=== PATIENT | male | born 1955 | race Caucasian/White ===

== ENCOUNTER 2018-06-02 01:45 | Inpatient (IN) | payer BC, OTHER ==
[2018-06-02] VITALS (20 sets, daily range): BP systolic 82–124; BP diastolic 44–85
[~2018-06-02] VITALS: Ht 180.3 cm; Wt 102.9 kg
[2018-06-02] MEDS ORDERED: PANTOPRAZOLE 80 MG in SODIUM CHLORIDE 0.9% 100 ML IV SCH (02:04)
[2018-06-02] MEDS ORDERED: OCTREOTIDE 500 MCG in SODIUM CHLORIDE 0.9% 249 ML IV PRN (02:21)
[2018-06-02] MEDS ORDERED: METOCLOPRAMIDE 5 MG/ML, 2ML ONE (02:28)
[2018-06-02] MEDS ORDERED: METOCLOPRAMIDE 5 MG/ML, 2ML IVPush ONE (02:30)
[2018-06-02] MEDS ORDERED: OCTREOTIDE 100MCG/ML, 1ML (0.1MG/ML) IV ONE (02:30)
[2018-06-02] MEDS ORDERED: SODIUM CHLORIDE FLUSH 10ML SYR IVF ONE (02:30)
[2018-06-02] MEDS ORDERED: PANTOPRAZOLE 40 MG IV IVPush ONE (02:30)
[2018-06-02] MEDS ORDERED: SODIUM CHLORIDE 0.9% 1,000ML IVBOLUS ONE (02:30)
[2018-06-02] MEDS ORDERED: PANTOPRAZOLE 40 MG IV ONE (02:37)
[2018-06-02 02:46] LABS: INTERNATIONAL NORMALIZED RATIO 1.72 (0.93-1.1); PROTHROMBIN TIME 17.7 Seconds (9.6-11.5)
[2018-06-02 02:47] LABS: ALANINE AMINOTRANSFERASE 36 U/L (12-78); ALBUMIN 1.8 g/dL (3.4-5.0); ANION GAP 13 mmol/L (5-15); CALCIUM 7.9 mg/dL (8.5-10.1); CHLORIDE 108 mmol/L (98-107); CREATININE 1.25 mg/dL (0.7-1.3)
[2018-06-02 02:49] LABS: ALKALINE PHOSPHATASE 127 U/L (45-117); BILIRUBIN,TOTAL 8.4 mg/dL (0.2-1.0); TOTAL PROTEIN 5.3 g/dL (6.4-8.2)
[2018-06-02 03:12] LABS: MEAN CORPUSCULAR HEMOGLOBIN 32.2 pg (27.5-34.5); MEAN CORPUSCULAR HGB CONC 34.5 g/dL (33.2-36.2); MEAN CORPUSCULAR VOLUME 93.3 fL (81-97); MEAN PLATELET VOLUME 11.5 fL (7.4-10.4); PLATELET COUNT 153 x10^3/uL (130-400); RED CELL DISTRIBUTION WIDTH 22.5 % (9.4-14.8)
[2018-06-02] MEDS ORDERED: CEFTRIAXONE 1,000 MG in SODIUM CHLORIDE 0.9% 50 ML IV ONE (04:00)
[2018-06-02] MEDS ORDERED: LIDOCAINE 1%-EPI 1:100K, 30ML ONE (04:22)
[2018-06-02] MEDS: OCTREOTIDE 500 MCG in DEXTROSE 5% 249 ML IV SCH ×2 (04:56→13:34)
[2018-06-02] MEDS: PANTOPRAZOLE 80 MG in SODIUM CHLORIDE 0.9% 100 ML IV SCH ×3 (04:56→21:25)
[2018-06-02] MEDS ORDERED: ONDANSETRON 2MG/ML, 2ML IV PRN (05:00)
[2018-06-02 05:28] LABS: BASOPHILS # (AUTO) 0.04 x10^3/uL (0-0.1); BASOPHILS % (AUTO) 0 % (0-1); EOSINOPHILS # (AUTO) 0.02 x10^3/uL (0-0.4); EOSINOPHILS % (AUTO) 0 % (1-7); LYMPHOCYTES # (AUTO) 1.36 x10^3/uL (1-3.4); LYMPHOCYTES % (AUTO) 7 % (22-44); MONOCYTES # (AUTO) 0.59 x10^3/uL (0.2-0.8); MONOCYTES % (AUTO) 3 % (2-9); NEUTROPHILS # (AUTO) 17.07 x10^3/uL (1.8-6.8); NEUTROPHILS % (AUTO) 90 % (42-75)
[2018-06-02 05:45] LABS: MD NO
[2018-06-02] MEDS ORDERED: CEFTRIAXONE PMX 1GM/50ML 50 ML ONE (05:51)
[2018-06-02] MEDS ORDERED: OCTREOTIDE 500 MCG in SODIUM CHLORIDE 0.9% 249 ML IV SCH (06:00)
[2018-06-02] MEDS: PHYTONADIONE 10 MG/ML, 1ML SQ SCH (06:06)
[2018-06-02] MEDS: SODIUM CHLORIDE 0.9% 1,000 ML IV SCH ×3 (06:06→21:00)
[2018-06-02] MEDS: CEFTRIAXONE 1,000 MG in SODIUM CHLORIDE 0.9% 50 ML IV SCH (07:04)
[2018-06-02] MEDS ORDERED: NOREPINEPHRINE 4 MG in SODIUM CHLORIDE 0.9% 246 ML IV PRN (08:30)
[2018-06-02] MEDS ORDERED: FENTANYL PF 100 MCG/2ML ONE ×2 (08:36)
[2018-06-02] MEDS ORDERED: MIDAZOLAM 1 MG/ML, 5ML ONE (08:36)
[2018-06-02] MEDS ORDERED: DIPHENHYDRAMINE 50 MG/ML, 1ML ONE (08:48)
[2018-06-02 09:30] LABS: ALANINE AMINOTRANSFERASE 33 U/L (12-78); ALBUMIN 1.7 g/dL (3.4-5.0); ANION GAP 12 mmol/L (5-15); CALCIUM 7.5 mg/dL (8.5-10.1); CHLORIDE 111 mmol/L (98-107); CREATININE 0.88 mg/dL (0.7-1.3)
[2018-06-02 09:32] LABS: ALKALINE PHOSPHATASE 100 U/L (45-117); BILIRUBIN,TOTAL 6.7 mg/dL (0.2-1.0); TOTAL PROTEIN 4.6 g/dL (6.4-8.2)
[2018-06-02 16:50] LABS: MEAN CORPUSCULAR HEMOGLOBIN 32.7 pg (27.5-34.5); MEAN CORPUSCULAR HGB CONC 35.1 g/dL (33.2-36.2); MEAN CORPUSCULAR VOLUME 93.2 fL (81-97); MEAN PLATELET VOLUME 9.6 fL (7.4-10.4); PLATELET COUNT 90 x10^3/uL (130-400); RED BLOOD COUNT 1.93 x10^6/uL (4.38-5.82); RED CELL DISTRIBUTION WIDTH 20.7 % (9.4-14.8)
[2018-06-02 16:55] LABS: MD YES
[2018-06-02 17:01] LABS: ANISOCYTOSIS 1+; LYMPH#(MANUAL) 1.65 x10^3/uL (1-3.4); LYMPHS% (MANUAL) 13 % (22-44); MONOS#(MANUAL) 0.76 x10^3/uL (0.3-2.7); MONOS% (MANUAL) 6 % (2-9); SEG#(MANUAL) 10.29 x10^3/uL (1.8-6.8); SEGS% (MANUAL) 81 % (42-75)
[2018-06-02 17:02] LABS: POLYCHROMASIA 1+; SCHISTOCYTES 1+
[2018-06-02 17:05] LABS: <PLATELET ESTIMATE> DECREASED; <PLT MORPHOLOGY> NORMAL PLT MORPH; OVALOCYTES 1+; SMUDGE CELLS 1+
[2018-06-03] VITALS (7 sets, daily range): BP systolic 93–123; BP diastolic 54–73
[2018-06-03] MEDS: SODIUM CHLORIDE 0.9% 1,000 ML IV SCH ×3 (03:08→18:31)
[2018-06-03] MEDS: CEFTRIAXONE 1,000 MG in SODIUM CHLORIDE 0.9% 50 ML IV SCH (05:37)
[2018-06-03] MEDS: PANTOPRAZOLE 80 MG in SODIUM CHLORIDE 0.9% 100 ML IV SCH ×2 (06:09→14:06)
[2018-06-03 06:12] LABS: CHLORIDE 112 mmol/L (98-107)
[2018-06-03 06:19] LABS: ALANINE AMINOTRANSFERASE 41 U/L (12-78); ALBUMIN 1.8 g/dL (3.4-5.0); ALKALINE PHOSPHATASE 90 U/L (45-117); ANION GAP 6 mmol/L (5-15); BILIRUBIN,TOTAL 9.1 mg/dL (0.2-1.0); CALCIUM 7.3 mg/dL (8.5-10.1); CREATININE 0.67 mg/dL (0.7-1.3); TOTAL PROTEIN 4.4 g/dL (6.4-8.2)
[2018-06-03 06:22] LABS: MEAN CORPUSCULAR HEMOGLOBIN 31.6 pg (27.5-34.5); MEAN CORPUSCULAR HGB CONC 34.7 g/dL (33.2-36.2); MEAN PLATELET VOLUME 9.6 fL (7.4-10.4); PLATELET COUNT 78 x10^3/uL (130-400); RED BLOOD COUNT 2.27 x10^6/uL (4.38-5.82); RED CELL DISTRIBUTION WIDTH 19.8 % (9.4-14.8)
[2018-06-03 06:49] LABS: BASOPHILS # (AUTO) 0.03 x10^3/uL (0-0.1); BASOPHILS % (AUTO) 0 % (0-1); EOSINOPHILS # (AUTO) 0.16 x10^3/uL (0-0.4); EOSINOPHILS % (AUTO) 2 % (1-7); LYMPHOCYTES # (AUTO) 1.74 x10^3/uL (1-3.4); LYMPHOCYTES % (AUTO) 16 % (22-44); MD SCAN; MONOCYTES % (AUTO) 7 % (2-9); NEUTROPHILS # (AUTO) 8.22 x10^3/uL (1.8-6.8); NEUTROPHILS % (AUTO) 75 % (42-75)
[2018-06-03] MEDS: PHYTONADIONE 10 MG/ML, 1ML SQ SCH (08:40)
[2018-06-03] MEDS: OCTREOTIDE 500 MCG in DEXTROSE 5% 249 ML IV SCH ×3 (12:04→21:57)
[2018-06-03 12:11] LABS: INTERNATIONAL NORMALIZED RATIO 1.52 (0.93-1.1); PROTHROMBIN TIME 15.7 Seconds (9.6-11.5)
[2018-06-03 19:53] LABS: INTERNATIONAL NORMALIZED RATIO 1.45 (0.93-1.1)
[2018-06-04] VITALS (7 sets, daily range): BP systolic 116–133; BP diastolic 70–80
[2018-06-04] MEDS: SODIUM CHLORIDE 0.9% 1,000 ML IV SCH ×3 (01:21→21:35)
[2018-06-04] MEDS: PANTOPRAZOLE 80 MG in SODIUM CHLORIDE 0.9% 100 ML IV SCH (02:13)
[2018-06-04] MEDS: CEFTRIAXONE 1,000 MG in SODIUM CHLORIDE 0.9% 50 ML IV SCH (05:43)
[2018-06-04 06:18] LABS: MEAN CORPUSCULAR HEMOGLOBIN 31.7 pg (27.5-34.5); MEAN CORPUSCULAR HGB CONC 34.5 g/dL (33.2-36.2); MEAN CORPUSCULAR VOLUME 91.9 fL (81-97); RED BLOOD COUNT 2.31 x10^6/uL (4.38-5.82); RED CELL DISTRIBUTION WIDTH 20.3 % (9.4-14.8)
[2018-06-04 06:20] LABS: INTERNATIONAL NORMALIZED RATIO 1.43 (0.93-1.1); PROTHROMBIN TIME 14.8 Seconds (9.6-11.5)
[2018-06-04 06:21] LABS: ALANINE AMINOTRANSFERASE 42 U/L (12-78); ALBUMIN 1.8 g/dL (3.4-5.0); ANION GAP 8 mmol/L (5-15); CALCIUM 6.9 mg/dL (8.5-10.1); CHLORIDE 114 mmol/L (98-107); CREATININE 0.68 mg/dL (0.7-1.3)
[2018-06-04 06:24] LABS: ALKALINE PHOSPHATASE 87 U/L (45-117); BILIRUBIN,TOTAL 8.4 mg/dL (0.2-1.0); TOTAL PROTEIN 4.4 g/dL (6.4-8.2)
[2018-06-04 06:39] LABS: MEAN PLATELET VOLUME 9.1 fL (7.4-10.4); PLATELET COUNT 58 x10^3/uL (130-400)
[2018-06-04 07:03] LABS: BASOPHILS # (AUTO) 0.04 x10^3/uL (0-0.1); BASOPHILS % (AUTO) 1 % (0-1); EOSINOPHILS # (AUTO) 0.13 x10^3/uL (0-0.4); EOSINOPHILS % (AUTO) 2 % (1-7); LYMPHOCYTES # (AUTO) 0.99 x10^3/uL (1-3.4); LYMPHOCYTES % (AUTO) 17 % (22-44); MD SCAN; MONOCYTES # (AUTO) 0.41 x10^3/uL (0.2-0.8); MONOCYTES % (AUTO) 7 % (2-9); NEUTROPHILS # (AUTO) 4.29 x10^3/uL (1.8-6.8); NEUTROPHILS % (AUTO) 73 % (42-75)
[2018-06-04] MEDS: PHYTONADIONE 10 MG/ML, 1ML SQ SCH (07:58)
[2018-06-04] MEDS: PROPRANOLOL 60 MG CAP.SA.24H PO SCH (09:30)
[2018-06-04] MEDS: LACTULOSE 20 GM/30 ML UDC PO SCH ×2 (09:36→21:35)
[2018-06-04] MEDS: OMEPRAZOLE 20 MG CAPSULE.DR PO SCH ×2 (09:36→21:36)
[2018-06-04] MEDS: RIFAXIMIN 550 MG TABLET PO SCH ×2 (09:36→21:35)
[2018-06-05 01:39] VITALS: BP 130/79
[2018-06-05] MEDS: SODIUM CHLORIDE 0.9% 1,000 ML IV SCH ×3 (02:50→17:36)
[2018-06-05] MEDS: CEFTRIAXONE 1,000 MG in SODIUM CHLORIDE 0.9% 50 ML IV SCH (05:00)
[2018-06-05 08:38] VITALS: BP 119/79
[2018-06-05] MEDS: PROPRANOLOL 60 MG CAP.SA.24H PO SCH (09:00)
[2018-06-05] MEDS: RIFAXIMIN 550 MG TABLET PO SCH ×2 (09:35→20:34)
[2018-06-05] MEDS: LACTULOSE 20 GM/30 ML UDC PO SCH ×2 (09:35→20:33)
[2018-06-05] MEDS: OMEPRAZOLE 20 MG CAPSULE.DR PO SCH ×2 (09:35→20:33)
[2018-06-05 13:10] VITALS: BP 123/80
[2018-06-05] MEDS ORDERED: PROPRANOLOL 60 MG CAP.SA.24H PO ONE (15:30)
[2018-06-05] MEDS ORDERED: PROPRANOLOL 60 MG TABLET PO ONE (16:00)
[2018-06-05 20:00] VITALS: BP 124/83
[2018-06-06] VITALS (8 sets, daily range): BP systolic 96–130; BP diastolic 60–78
[2018-06-06] MEDS: SODIUM CHLORIDE 0.9% 1,000 ML IV SCH ×2 (01:39→06:40)
[2018-06-06] MEDS: CEFTRIAXONE 1,000 MG in SODIUM CHLORIDE 0.9% 50 ML IV SCH (04:42)
[2018-06-06] MEDS: LACTULOSE 20 GM/30 ML UDC PO SCH (08:55)
[2018-06-06] MEDS: OMEPRAZOLE 20 MG CAPSULE.DR PO SCH (08:55)
[2018-06-06] MEDS: RIFAXIMIN 550 MG TABLET PO SCH (08:55)
[2018-06-06] MEDS: PROPRANOLOL 60 MG CAP.SA.24H PO SCH (08:56)
[2018-06-06] MEDS ORDERED: PROP60CA PO (09:06)
[2018-06-06] MEDS ORDERED: LACT20SO13 PO (09:06)
[2018-06-06] MEDS ORDERED: OMEP-110 PO (09:06)
[2018-06-06] MEDS ORDERED: RIFA550T4 PO (09:06)
[2018-06-06 10:04] LABS: MEAN CORPUSCULAR HEMOGLOBIN 31.2 pg (27.5-34.5); MEAN CORPUSCULAR HGB CONC 33.7 g/dL (33.2-36.2); MEAN CORPUSCULAR VOLUME 92.5 fL (81-97); MEAN PLATELET VOLUME 9.6 fL (7.4-10.4); PLATELET COUNT 71 x10^3/uL (130-400); RED BLOOD COUNT 2.81 x10^6/uL (4.38-5.82); RED CELL DISTRIBUTION WIDTH 22.3 % (9.4-14.8)
[2018-06-06] MEDS ORDERED: CEFD300C37 PO (10:23)
[2018-06-06] MEDS ORDERED: FURO20TA3 PO (10:23)
[2018-06-06 11:43] LABS: MD YES
[2018-06-06 11:44] LABS: EOS#(MANUAL) 0.06 x10^3/uL (0.0-0.4); EOS% (MANUAL) 1 % (1-7); LYMPHS% (MANUAL) 11 % (22-44); MONOS#(MANUAL) 0.38 x10^3/uL (0.3-2.7); MONOS% (MANUAL) 6 % (2-9); SEG#(MANUAL) 5.25 x10^3/uL (1.8-6.8); SEGS% (MANUAL) 82 % (42-75)
[2018-06-06 11:45] LABS: <PLATELET ESTIMATE> DECREASED; <PLT MORPHOLOGY> NORMAL PLT MORPH; ANISOCYTOSIS 2+; CRENATED 1+; MICROCYTOSIS 1+; POLYCHROMASIA 1+
== END 2018-06-06 11:20 | disposition home or self-care (01) | DRG 368 ==
LOC: ED 03:33 → EDIP 03:38 → ED 04:07 → CCU 08:00 → 3NE 06-04 10:02 → DCLOUNGE 06-06 11:01
PROVIDERS: ADMIT Hospitalist; ATTEND Hospitalist
PROC: 02HV33Z Insertion of Infusion Device into Superior Vena Cava, Percutaneous Approach (ICD-10-PCS; 2018-06-02)
PROC: 30233N1 Transfusion of Nonautologous Red Blood Cells into Peripheral Vein, Percutaneous Approach (ICD-10-PCS; 2018-06-02)
PROC: 06L38CZ Occlusion of Esophageal Vein with Extraluminal Device, Via Natural or Artificial Opening Endoscopic (ICD-10-PCS; principal; 2018-06-02 09:00)
PROC: 30233L1 Transfusion of Nonautologous Fresh Plasma into Peripheral Vein, Percutaneous Approach (ICD-10-PCS; 2018-06-04)
PROC: 30233K1 Transfusion of Nonautologous Frozen Plasma into Peripheral Vein, Percutaneous Approach (ICD-10-PCS; 2018-06-04)
DX: I85.11 Secondary esophageal varices with bleeding (principal); E43 Unspecified severe protein-calorie malnutrition; D62 Acute posthemorrhagic anemia; D68.4 Acquired coagulation factor deficiency; I86.4 Gastric varices; F10.10 Alcohol abuse, uncomplicated; I95.9 Hypotension, unspecified; K70.11 Alcoholic hepatitis with ascites; K70.31 Alcoholic cirrhosis of liver with ascites; K72.90 Hepatic failure, unspecified without coma; Z76.82 Awaiting organ transplant status; Z68.31 Body mass index [BMI] 31.0-31.9, adult
CPT/HCPCS: 36415; 36430; 36556; 71045; 80053; 82140; 83690; 83735; 84100; 85014; 85018; 85025; 85610; 85730; 86850; 86900; 86923; 87040; 87076; 87081; 93005; 93975; 96365; 96372; 96375; 96376; 99152; 99153; 99291; G0378; J0696; J2250; J2354; J3010; J3430; J7060; C9113; J2765; J7030; J7050; P9016; P9017